=== PATIENT | male | born 1950 | race Caucasian/White ===

== ENCOUNTER → 2016-07-18 | Day surgery (SDC) | payer BC ==
[~2016-07-18] VITALS: Ht 172.7 cm; Wt 69.9 kg
[~2016-07-18] MED LIST: ACETAMINOPHEN TAB 650MG DOSE (2X325MG) PO PRN; ASPI1TAB24 PO; ATOR40TA PO; FINA5TAB2 PO; FLOM5CAP PO; GLYCOPYRROLATE INJ 0.2 MG/ML 2 ML VIAL As Ordered ONE; LIDOCAINE 2% INJ 100 MG/5 ML SDV (FOR ANES.) As Ordered ONE; LR 1,000 ML IV SCH; METOCLOPRAMIDE INJ 10MG/2ML VIAL (J2765) IV PRN; MIDAZOLAM INJ 2 MG/2 ML VIAL (J2250) As Ordered ONE; NEOSTIGMINE 1MG/ML 5 ML SYRINGE (J2710) As Ordered ONE; ONDANSETRON 4MG/2ML VIAL (J2405) As Ordered ONE; ONDANSETRON 4MG/2ML VIAL (J2405) IV PRN; PERCOCET 5MG/325MG TAB PO PRN; PHENYLephrine HCL 500 MCG/5 ML (100MCG/ML) SYRINGE (J2370) As Ordered ONE; PROPOFOL 200 MG/20 ML VIAL As Ordered ONE; ROCURONIUM BROMIDE 50 MG/5 ML VIAL As Ordered ONE; [UNRECOGNIZED DRUG - OTHER] PO; fentaNYL 100 MCG/2 ML INJECTION (J3010) As Ordered ONE; fentaNYL 100 MCG/2 ML INJECTION (J3010) IV PRN
--- NOTE | 2016-07-18 08:27 | RO ---
DATE OF PROCEDURE: 07/18/2016 PREPROCEDURE DIAGNOSIS: Bladder mass. POSTPROCEDURE DIAGNOSIS: Bladder mass. PROCEDURE: Cystoscopy, transurethral resection of bladder tumor (less than 2 cm ), bimanual examination under anesthesia. SURGEON: Jin Gibbs MD ODD SHOE EXAMINER: None. ANESTHESIA: General. OPERATIVE INDICATIONS: This is a 65-year-old male who was recently found to have a small polyp-appearing mass at approximately 4:00 o'clock at the bladder neck on office cystoscopy. He was brought to the operating room today for resection of the mass. DESCRIPTION OF PROCEDURE: The patient was brought to the operating room and general anesthesia was induced. Prophylactic antibiotics were infused. He was then placed in the dorsal lithotomy position and a bimanual digital rectal examination under anesthesia was performed. There were no palpable prostatic masses and there were no palpable bladder masses. The patient was then prepped and draped in the usual sterile fashion. A rigid cystoscope was inserted into the urethral meatus and advanced into the bladder. The bladder was then thoroughly examined with both 30 and 70 degree lenses. The only abnormality that was seen was the 1 cm polyp-appearing mass at 4:00 o' clock at the bladder neck. The cystoscope was then removed, and the resectoscope was inserted. This was utilized to resect the mass at the bladder neck completely. The area of resection was then cauterized using a coagulation current. At this point, hemostasis appeared excellent. The mass was handed off the table to be sent for pathologic analysis. At this point, the resectoscope was removed and an #18-K[place] Crenshaw catheter was inserted into the bladder. The catheter balloon was then filled with 10 mL of sterile water and urine drained clear at the end of the procedure. The catheter was then connected to gravity drainage. This marked the conclusion of the procedure. The patient was then taken out of the dorsal lithotomy position, awakened from anesthesia and transported to the recovery room in stable condition. ESTIMATED BLOOD LOSS: 0 mL. COMPLICATIONS: None. SPECIMENS: Resected mass at the bladder neck. PLAN: The patient will followup next week for catheter removal and to discuss the pathology results. RAISA
== END | disposition home or self-care (01) ==
LOC: M SDC 06:29
PROVIDERS: ATTEND Urology
DX: R31.29 Other microscopic hematuria (principal); N30.90 Cystitis, unspecified without hematuria; K21.9 Gastro-esophageal reflux disease without esophagitis; E78.5 Hyperlipidemia, unspecified; I73.9 Peripheral vascular disease, unspecified; N40.0 Benign prostatic hyperplasia without lower urinary tract symptoms; Z79.899 Other long term (current) drug therapy; F17.210 Nicotine dependence, cigarettes, uncomplicated; J44.9 Chronic obstructive pulmonary disease, unspecified
CPT/HCPCS: 52234; 88307; J0690; J2250; J2370; J2405; J2710; J3010

== ENCOUNTER → 2019-03-14 | Outpatient (REF) ==
[~2019-03-14] MED LIST changes: -ACETAMINOPHEN TAB 650MG DOSE (2X325MG) PO PRN; +ASPI-161 PO; -ASPI1TAB24 PO; -ATOR40TA PO; +ATOR40TA75 PO; +FLOM0.4C39 PO; -FLOM5CAP PO; -GLYCOPYRROLATE INJ 0.2 MG/ML 2 ML VIAL As Ordered ONE; -LIDOCAINE 2% INJ 100 MG/5 ML SDV (FOR ANES.) As Ordered ONE; -LR 1,000 ML IV SCH; -METOCLOPRAMIDE INJ 10MG/2ML VIAL (J2765) IV PRN; -MIDAZOLAM INJ 2 MG/2 ML VIAL (J2250) As Ordered ONE; -NEOSTIGMINE 1MG/ML 5 ML SYRINGE (J2710) As Ordered ONE; -ONDANSETRON 4MG/2ML VIAL (J2405) As Ordered ONE; -ONDANSETRON 4MG/2ML VIAL (J2405) IV PRN; -PERCOCET 5MG/325MG TAB PO PRN; -PHENYLephrine HCL 500 MCG/5 ML (100MCG/ML) SYRINGE (J2370) As Ordered ONE; -PROPOFOL 200 MG/20 ML VIAL As Ordered ONE; -ROCURONIUM BROMIDE 50 MG/5 ML VIAL As Ordered ONE; -fentaNYL 100 MCG/2 ML INJECTION (J3010) As Ordered ONE; -fentaNYL 100 MCG/2 ML INJECTION (J3010) IV PRN
== END ==
LOC: M LAB LCGH 13:38
PROVIDERS: ATTEND Surgery
DX: Z12.11 Encounter for screening for malignant neoplasm of colon (principal)

== ENCOUNTER 2022-04-21 11:07 | Day surgery (SDC) | payer MEDICARE ==
[~2022-04-21] VITALS: Ht 175.3 cm; Wt 74.4 kg
[~2022-04-21 11:07] MED LIST changes: +BSS IRRIG/VANCO(10MG)/TOBRA(5MG)/EPINEPH(1:1000-0.5CC)500ML BAG-ORONLY IR ONE; +CEFUROXIME 1MG/0.1ML INTRACAMERAL INJ As Ordered ONE; +CYCLOPENTOLATE 1% OPHTH SOLN 2 ML BTL OD SCH; +LIDOCAINE 3.5 % 1ML OPHTH TOPICAL GEL OU ONE; +LISI10TA22 PO; +OFLOXACIN 0.3 % (OCUFLOX) OPTH SOL 5ML OD ONE; +PHENYLEPHRINE 2.5% OPHTH SOL 2ML OD SCH; +PHENYLEPHRINE HCL 10 % OPHTH. SOL 5ML OD PRN; +TROPICAMIDE 1% OPHTH SOLN 2ML OD SCH
[2022-04-21] MEDS ORDERED: LIDOCAINE 1% 1ML PF SYRINGE (OR EYE CASES) As Ordered ONE (11:11)
[2022-04-21] MEDS ORDERED: MIDAZOLAM INJ 2MG/2ML VIAL (J2250 PER 1MG) As Ordered ONE (11:17)
[2022-04-21 13:05] VITALS: BP 154/68
== END 2022-04-21 13:23 | disposition home or self-care (01) ==
LOC: M SDC 11:07
PROVIDERS: ATTEND Ophthalmology
DX: H25.11 Age-related nuclear cataract, right eye (principal); J44.9 Chronic obstructive pulmonary disease, unspecified; I10 Essential (primary) hypertension; E78.5 Hyperlipidemia, unspecified; I73.9 Peripheral vascular disease, unspecified; Z98.61 Coronary angioplasty status; Z79.82 Long term (current) use of aspirin; Z79.899 Other long term (current) drug therapy; Z86.718 Personal history of other venous thrombosis and embolism; F41.9 Anxiety disorder, unspecified; F32.A Depression, unspecified; K21.9 Gastro-esophageal reflux disease without esophagitis; F17.210 Nicotine dependence, cigarettes, uncomplicated
CPT/HCPCS: 66984; J0697; J2250; V2632

== ENCOUNTER 2022-07-28 08:14 | Day surgery (SDC) | payer MEDICARE ==
[~2022-07-28] VITALS: Ht 175.3 cm; Wt 79.4 kg
[~2022-07-28 08:14] MED LIST changes: -CYCLOPENTOLATE 1% OPHTH SOLN 2 ML BTL OD SCH; +CYCLOPENTOLATE 1% OPHTH SOLN 2ML BTL OS SCH; +LIDOCAINE 1% SDV 5ML VIAL As Ordered ONE; -OFLOXACIN 0.3 % (OCUFLOX) OPTH SOL 5ML OD ONE; +OFLOXACIN 0.3 % (OCUFLOX) OPTH SOL 5ML OS ONE; +PHENYLEPHRINE 10% OPHTH SOL 5ML OS PRN; -PHENYLEPHRINE 2.5% OPHTH SOL 2ML OD SCH; +PHENYLEPHRINE 2.5% OPHTH SOL 2ML OS SCH; -PHENYLEPHRINE HCL 10 % OPHTH. SOL 5ML OD PRN; +TROPICAMIDE 1% OPHTH SOLN 15ML OS SCH; -TROPICAMIDE 1% OPHTH SOLN 2ML OD SCH
[2022-07-28] MEDS ORDERED: fentaNYL 100 MCG/2 ML INJECTION As Ordered ONE (09:39)
[2022-07-28] MEDS ORDERED: MIDAZOLAM INJ 2MG/2ML VIAL As Ordered ONE (09:40)
[2022-07-28 10:36] VITALS: BP 145/70
== END 2022-07-28 10:50 | disposition home or self-care (01) ==
LOC: M SDC 08:14
PROVIDERS: ATTEND Ophthalmology
DX: H25.12 Age-related nuclear cataract, left eye (principal); I25.10 Atherosclerotic heart disease of native coronary artery without angina pectoris; I10 Essential (primary) hypertension; E78.5 Hyperlipidemia, unspecified; I73.9 Peripheral vascular disease, unspecified; Z79.82 Long term (current) use of aspirin; Z79.899 Other long term (current) drug therapy; F41.9 Anxiety disorder, unspecified; F32.A Depression, unspecified; N40.0 Benign prostatic hyperplasia without lower urinary tract symptoms; Z86.718 Personal history of other venous thrombosis and embolism
CPT/HCPCS: 66984; J0697; J2250; J3010; V2632